=== PATIENT | female | born 1975 | race Caucasian/White ===

== ENCOUNTER 2024-01-29 00:50 | Emergency (ER) | payer MEDICAID ==
[~2024-01-29] VITALS: Ht 160 cm; Wt 93.9 kg
[2024-01-29 00:57] VITALS: BP 138/85; PULSE 86; RESP 18; TEMP 208.4; TEMP 98; O2SAT 98
[2024-01-29] MEDS ORDERED: ACET-10509 PO (02:39)
[2024-01-29] MEDS: KETOROLAC 30 MG/ML VIAL IM ONE (02:42)
== END 2024-01-29 02:52 | disposition home or self-care (01) ==
LOC: MED 00:50
DX: G56.01 Carpal tunnel syndrome, right upper limb (principal); Z79.1 Long term (current) use of non-steroidal anti-inflammatories (NSAID); Z88.6 Allergy status to analgesic agent
CPT/HCPCS: 96372; 99283; J1885